=== PATIENT | male | born 1960 | race Caucasian/White ===

== ENCOUNTER → 2019-11-07 13:20 | Outpatient (CLI) | payer OTHER, SELFPAY ==
--- NOTE | ~2019-11-07 | XR_ITS ---
XR ankle RT 2V, XR tibia fibula RT 2V 11/07/2019 14:12 (accession [id number]), 11/07/2019 14:11 (accession [id number]) Indication: Right leg and ankle pain Procedure: 2 views right ankle and 2 views right tibia/fibula Comparison: No prior studies for comparison. Findings: There is a nondisplaced oblique distal fibular metadiaphyseal fracture. Moderate soft tissu e swelling laterally. There is a joint effusion. Prominent degenerative calcaneal enthesophyte at the plantar insertion. Ankle mortise intact. Talar dome within normal limits. Impression: 1: Nondisplaced oblique distal fibular metadiaphyseal fracture. Reviewed, dictated and finalized at location B. T RAIL OPERATOR Impression: 1: Nondisplaced oblique distal fibular metadiaphyseal fracture. Impression: 1: Nondisplaced oblique distal fibular metadiaphyseal fracture.
== END ==
PROVIDERS: PCP Family Medicine; Visit Provider Family Medicine
DX: S99.919A Unspecified injury of unspecified ankle, initial encounter (principal); X58.XXXA Exposure to other specified factors, initial encounter
CPT/HCPCS: 73590; 73600

== ENCOUNTER 2020-12-08 20:11 | Emergency (ER) | payer OTHER, SELFPAY ==
--- NOTE | ~2020-12-08 | XR_ITS ---
EXAMINATION: XR ankle LT min 3V, XR foot LT min 3V DATE: 12/08/2020 20:46 INDICATION: Posttraumatic lateral left foot and ankle pain TECHNIQUE: 1. Anteroposterior, mortise, additional oblique and lateral view of the left ankle were obtained. 2. Dorsoplantar, two oblique and lateral views of the left foot were obtained. COMPARISON: None. FINDINGS: Nondisplaced likely intra-articular fracture at the base of the left fifth metatarsal. Metallic pin i n the head of the first metatarsal. Moderate osteoarthritis at the first metatarsophalangeal joint. M ild osteoarthritis at a few of the tarsal metatarsal and interphalangeal joints. Flattening at the he ad of the second metatarsal suggesting chronic osteonecrosis/Freiberg's infraction. Large plantar adriana caneal spur. Diffuse osteopenia. No ankle joint effusion. Mild soft tissue swelling at the lateral mi dfoot. IMPRESSION: 1. Nondisplaced likely intra-articular fracture at the base of the left fifth metatarsal. Reviewed, dictated and finalized at location A. NG TIER IMPRESSION: 1. Nondisplaced likely intra-articular fracture at the base of the left fifth m etatarsal.
[2020-12-08 20:16] VITALS: BP 131/78; PULSE 75; RESP 18; TEMP 36.4; O2SAT 100
--- NOTE | 2020-12-08 20:36 | ED.GENADULT ---
HPI - General Adult General Chief complaint: Extremity Injury, Lower <Jose Vance PA-C - Last Filed: 12/08/20 21:24> Stated complaint: left ankle pain after fall <Jose Vance PA-C - Last Filed: 12/08/20 21:24> Time Seen by Provider: 12/08/20 20:22 <Jose Vance PA-C - Last Filed: 12/08/20 21:24> Source: patient and family <Jose Vance PA-C - Last Filed: 12/08/20 21:24> Mode of arrival: ambulatory <KIMBERLY Kay Last Filed: 12/08/20 21:24> Limitations: no limitations <KIMBERLY Kay Last Filed: 12/08/20 21:24> History of Present Illness HPI narrative: Patient is a 60-year-old male who presents to emergency department for evaluation of left ankle foot injury patient was ambulating without his support boot secondary to his chronic neuropathy which requires him to wear a specialized splint patient had taken it off and rolled the ankle while walking has since had aching pain to the ankle and foot mild swelling around the ankle pain is worse mainly along the lateral aspect patient denies other injuries or complaints presents for private vehicle has not had anything for pain <KIMBERLY Kay Last Filed: 12/08/20 21:24> Related Data Home medications: Home Medications Medication Instructions Recorded Confirmed ascorbic acid (vitamin C) 500 mg 500 mg PO ONCE cap 11/07/19 capsule bicalutamide 50 mg tablet 50 mg PO DAILY 11/07/19 calcium carbonate 600 mg calcium 600 mg PO DAILY 11/07/19 (1,500 mg) tablet cholecalciferol (vitamin D3) 250 10,000 unit PO DAILY 11/07/19 mcg (10,000 unit) capsule multivitamin 1 tablet PO DAILY 11/07/19 oxycodone 5 mg tablet 5 mg PO Q6H PRN tablet 11/07/19 vitamin B complex 1 tablet PO DAILY 11/07/19 degarelix 120 mg subcutaneous 240 mg SUB-Q ONCE 11/09/19 solution acetaminophen 650 mg 650 mg PO Q12H 12/15/19 tablet,extended release amitriptyline 50 mg tablet 50 mg PO ONCE 12/15/19 ibuprofen 800 mg tablet 800 mg PO Q6H 12/15/19 <Jose Vance PA-C - Last Filed: 12/08/20 21:24> Allergies/adverse reactions: Allergies Allergy/AdvReac Type Severity Reaction Status Date / Time No Known Allergies Allergy Verified 12/15/19 11:24 <Jose Vance PA-C - Last Filed: 12/08/20 21:24> Review of Systems Review of Systems: All systems reviewed & are unremarkable except as noted in HPI and below <Jose Vance PA-C - Last Filed: 12/08/20 21:24> [facility] Past Medical History Medical History: Medical History (Updated 12/08/20 @ 21:24 by Jose Vance PA-C) Family history of colon cancer Family history of diabetes mellitus in brother Prostate cancer Right leg numbness <Jose Vance PA-C - Last Filed: 12/08/20 21:24> Surgical History Surgical History: Surgical History History of appendectomy 1974 History of radical prostatectomy 2018 History of toe surgery spur left big toe History of vasectomy 2009 S/P radiation therapy < 4 weeks ago 03/2019 <Jose Vance PA-C - Last Filed: 12/08/20 21:24> Family History Family History: Family History Mother Family history of cardiovascular disease Grandparent Family history of malignant neoplasm Sibling Carcinoma of colon <Jose Vance PA-C - Last Filed: 12/08/20 21:24> Social History Social History: Social History Smoking status: Never smoker Alcohol intake: current Substance use: never Substance use type: does not use Additional occupation/education comments: Order [employer] Gender identity (if verbalized by the patient): Male Agree to blood products: Yes <Jose Vance PA-C - Last Filed: 12/08/20 21:24> Exam Narrative: Exam Narrative: GENERAL: Well-appearing, well-willie
[2020-12-08 22:02] VITALS: BP 134/82; PULSE 78; RESP 16; TEMP 36.7; O2SAT 100
== END 2020-12-08 22:04 | disposition home or self-care (01) ==
PROVIDERS: Emergency Provider Emergency Medicine; PCP Family Medicine
DX: S92.355A Nondisplaced fracture of fifth metatarsal bone, left foot, initial encounter for closed fracture (principal); G62.89 Other specified polyneuropathies; X50.9XXA Other and unspecified overexertion or strenuous movements or postures, initial encounter
CPT/HCPCS: 29515; 73610; 73630; 99284